=== PATIENT | male | born 1985 | race African-American/Black ===

== ENCOUNTER → 2022-03-07 09:54 | Outpatient (BNVA) | payer OTHER, SELFPAY | PROVIDERS: Visit Provider Internal Medicine | DX: S39.012A Strain of muscle, fascia and tendon of lower back, initial encounter (principal); V97.89XA Other air transport accidents, not elsewhere classified, initial encounter | CPT/HCPCS: 99203 ==

== ENCOUNTER → 2022-03-13 10:07 | Outpatient (BNVA) | payer OTHER, SELFPAY | PROVIDERS: Visit Provider Internal Medicine | DX: S39.012A Strain of muscle, fascia and tendon of lower back, initial encounter (principal); V97.89XA Other air transport accidents, not elsewhere classified, initial encounter | CPT/HCPCS: 99213 ==

== ENCOUNTER → 2022-03-27 13:09 | Outpatient (BNVA) | payer OTHER, SELFPAY | PROVIDERS: Visit Provider Internal Medicine | DX: S39.012D Strain of muscle, fascia and tendon of lower back, subsequent encounter (principal); X58.XXXD Exposure to other specified factors, subsequent encounter | CPT/HCPCS: 99213 ==

== ENCOUNTER → 2022-04-03 14:04 | Outpatient (BNVA) | payer OTHER, SELFPAY | PROVIDERS: Visit Provider Internal Medicine | DX: S39.012D Strain of muscle, fascia and tendon of lower back, subsequent encounter (principal); V97.89 Other air transport accidents, not elsewhere classified | CPT/HCPCS: 99213 ==

== ENCOUNTER → 2022-04-24 14:07 | Outpatient (BNVA) | payer OTHER, SELFPAY | PROVIDERS: Visit Provider Physician Assistant | DX: S39.012D Strain of muscle, fascia and tendon of lower back, subsequent encounter (principal); V97.89 Other air transport accidents, not elsewhere classified | CPT/HCPCS: 99213 ==

== ENCOUNTER 2022-05-12 15:00 | Outpatient (RCR) | payer OTHER, SELFPAY ==
--- NOTE | 2022-04-03 16:10 | MHC.PT.EP ---
[facility] [place] [facility] [place] [facility] [place] Office [address] Nelida Contreras [address] [phone] F: [phone] F: [phone] F: [phone] F: [phone] Physical Therapy Plan of Care Date of Evaluation: Date of Surgery: NA Diagnosis: R lumbar strain Assessment: Jhonny is a 36 yo M referred to PT for a R lumbar strain following a work injury exactly 1 month ago. 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 He reports being I with ADLs but dopes have difficulty putting on shoes and socks and has avoided lifting greater than 20 pounds. Upon exam he presents with decreased hip flexor strength, decreased TrA strength, decreased HS strength and mobility, along with tissue tension and lack of mobility in bed and ability to squat functionally. Jhonny will benefit from skilled PT to address the aforementioned impairments and receive education on body mechanics. Frequency and Duration: The patient will be seen 2/ week for 5 weeks Short Term Goals: Patient will demonstrate a 25% increase in lumbar flexion to allow him to put on shoes and socks without pain in 3 weeks. Patient will be able to demonstrate functional squat mechanics which will encourage return to regular day to day lifting activities in 3 weeks. Jail Goals: Patient will be I with HEP to encourage adjunct faculty for medical terminology pain management strategies and maintain level of function in 5 weeks. Patient will demonstrate a 1 grade increase in TrA strength which will allow him to return to regular work activities and PLOF in 5 weeks. Treatment Plan: Modalities to reduce pain, spasms and effusion. Manual therapy to restore motion and function. Therapeutic exercise to improve strength and flexibility. Neuromuscular re-education for posture and balance. Therapeutic activities to return to functional activities of daily living. Electronically signed by: Lorna Stoddard PT DPT Please sign and return to therapist. Thank you for your referral.
--- NOTE | 2022-05-12 16:06 | MHC.PT.DC ---
[facility] [place] Office [place] Office [place] Office [address] Nelida Contreras [address] [phone] F: [phone] F: [phone] F: [phone] F: [phone] Physical Therapy Discharge Report Diagnosis: R lumbar strain Date of Surgery: NA Date of Evaluation: 04/03/22 Date of Discharge: 05/12/22 Treatments to Date: 8 Cancellations to Date: 0 No Shows to Date: 1 Discharge Status: Achieved Goals Improved Function Independent with HEP Discharge Summary: Jhonny has completed 8 PT visits. He has improved significantly and has achieved all goals set for him. He has returned to PLOF. He is therefore being d.c from PT. Jhonny in agreement with the plan. Electronically signed by: Lorna Stoddard, PT DPT Please sign and return to therapist. Thank you for your referral.
== END 2022-05-12 16:06 | disposition home or self-care (01) ==
LOC: HO.PT 15:00
PROVIDERS: Visit Provider Internal Medicine
DX: S39.012D Strain of muscle, fascia and tendon of lower back, subsequent encounter (principal)
CPT/HCPCS: 97110; 97112; 97161; 97530